=== PATIENT | female | born 1970 | race Caucasian/White ===

== ENCOUNTER → 2022-04-16 | Outpatient (CLI) | payer MEDICARE, MEDICAID ==
--- NOTE | 2022-04-16 11:33 | Diagnostic Imaging Report ---
INDICATION: Bladder carcinoma, initial staging. Patient does have a liver lesion noted on outside CT. Serum blood glucose level at time of injection is 154 mg/dL. Patient was administered 13 mCi F-18 FDG intravenously in the right antecubital location and PET imaging was performed from the top of skull to mid thighs. Noncontrast CT was also performed for attenuation correction and anatomic correlation. No prior imaging is available for comparison. There is symmetric activity throughout the brain. Soft tissues of the neck are unremarkable. No definite mediastinal or hilar hypermetabolism is seen. No pulmonary parenchymal hypermetabolism is identified. There is a low-attenuation lesion in the dome of the right lobe of the liver measuring 2.4 cm. However, this does not show FDG avidity. No definite hypermetabolic liver lesions are seen. There are however some hypermetabolic lymph nodes in the linh hepatis as well as in the gastrohepatic ligament. Linh hepatis lymph node demonstrates SUV max of 4.8. Gastrohepatic lymph node shows SUV max of 3.7. There is bilateral hydroureteronephrosis present. There is a lytic lesion in the left iliac bone measuring 13 mm. This is hypermetabolic with SUV max of 9.4. There is a hypermetabolic soft tissue mass right para midline pelvis just cephalad to the urinary bladder measuring 6.0 x 4.8 cm. This demonstrate SUV max of 12.6. There are some hypermetabolic lymph nodes in the right groin. Right groin lymph node demonstrates SUV max 8.6. There is a hypermetabolic soft tissue density in the deeper right groin musculature with an SUV max of 6.7. This appears to be situated between the right pectineus and obturator externus musculature. IMPRESSION: Abnormal PET/CT study demonstrating hypermetabolic linh hepatis and gastrohepatic ligament lymphadenopathy. The right lobe liver dome lesion does not appear to be FDG avid. There is also a hypermetabolic lytic lesion in the left iliac bone as well as hypermetabolic pelvic mass as well as associated right groin hypermetabolic lymphadenopathy. Dictated by: Dictated on workstation # [id number]
== END ==
LOC: RAD 06:50
PROVIDERS: ATTEND Internal Medicine Hospice and Palliative Medicine
DX: C67.9 Malignant neoplasm of bladder, unspecified (principal); K76.9 Liver disease, unspecified
CPT/HCPCS: 78815; A9552

== ENCOUNTER → 2022-06-08 | Outpatient (RCR) | payer MEDICARE, MEDICAID ==
[2022-06-08 13:12] LABS: BASOPHILS # (AUTO) 0.1 10^3/uL (0.0-0.1); BASOPHILS % (AUTO) 1 % (0-10); EOSINOPHILS # (AUTO) 0.2 10^3/uL (0.0-0.3); EOSINOPHILS % (AUTO) 3 % (0-10); HEMATOCRIT 30 % (35-52); HEMOGLOBIN 9.7 g/dL (11.5-16.0); LYMPHOCYTES # (AUTO) 1.7 10^3/uL (1.0-4.0); LYMPHOCYTES % (AUTO) 29 % (12-44); MEAN CORPUSCULAR HEMOGLOBIN 27 pg (25-34); MEAN CORPUSCULAR HGB CONC 32 g/dL (32-36); MEAN CORPUSCULAR VOLUME 84 fL (80-99); MEAN PLATELET VOLUME 8.2 fL (9.0-12.2); MONOCYTES # (AUTO) 0.4 10^3/uL (0.0-1.0); MONOCYTES % (AUTO) 6 % (0-12); NEUTROPHILS # (AUTO) 3.6 10^3/uL (1.8-7.8); NEUTROPHILS % (AUTO) 62 % (42-75); PLATELET COUNT 370 10^3/uL (130-400); WHITE BLOOD COUNT 5.9 10^3/uL (4.3-11.0)
[2022-06-08 13:33] LABS: ALBUMIN 3.9 GM/DL (3.2-4.5); BILIRUBIN,TOTAL 0.2 MG/DL (0.1-1.0); CALCIUM 9.5 MG/DL (8.5-10.1); CREATININE SERUM 1.07 MG/DL (0.60-1.30); POTASSIUM 3.4 MMOL/L (3.6-5.0); TOTAL PROTEIN 7.5 GM/DL (6.4-8.2)
== END ==
LOC: ONC 10:24
PROVIDERS: ATTEND Internal Medicine Hematology & Oncology
DX: C67.9 Malignant neoplasm of bladder, unspecified (principal); F32.9 Major depressive disorder, single episode, unspecified; M89.9 Disorder of bone, unspecified; R59.0 Localized enlarged lymph nodes; Z90.49 Acquired absence of other specified parts of digestive tract; Z92.3 Personal history of irradiation; Z85.41 Personal history of malignant neoplasm of cervix uteri
CPT/HCPCS: 80053; 82378; 85025; 86304; G0463; 36415; 99204

== ENCOUNTER → 2022-06-12 | Outpatient (CLI) | payer OTHER, MEDICAID ==
[~2022-06-12] MED LIST: CATHETER FLUSH 10 ML SYR IV PRN; IOHEXOL 350 MG/ML 100 ML (OMNIPAQUE 350) VIAL IV ONE; NS 100 ML (IVPB) BAG IV ONE
--- NOTE | 2022-06-12 13:01 | Diagnostic Imaging Report ---
Indication: Bladder cancer TECHNIQUE: Multiple contiguous axial images were obtained through the chest, abdomen, and pelvis after the administration of intravenous contrast. Auto Exposure Controls were utilized during the CT exam to meet ALARA standards for radiation dose reduction. Comparison made to PET/CT of 04/16/2022 CT chest findings: There are no enlarged mediastinal or hilar nodes. There are no enlarged axillary nodes or chest wall lesions. There is no pleural or pericardial fluid. There is no overt bony abnormality in the chest. Lung parenchymal windows demonstrate calcified granuloma in the right upper lobe. There is no suspicious pulmonary nodule or infiltrate. CT abdomen pelvis findings: There is a vague lesion in the right lobe the liver posteriorly and superiorly, measuring 2.3 cm. This lesion apparently was not hypermetabolic on recent PET study and is nonspecific. Patient's had previous cholecystectomy. The spleen, adrenals, and pancreas appear unremarkable. The left kidney shows minimal hydronephrosis. Right kidney shows moderate to severe hydronephrosis and decreased enhancement compared to the left side. There is hydroureter on the right side, down to the level of the distal ureter. There is mild left hydroureter. There are some mildly enlarged nodes in the gastrohepatic ligament periportal region, which were hypermetabolic on recent PET study. Largest node in the gastrohepatic ligament measured 2.4 x 1.9 cm, the largest node in the periportal region measured 2.1 x 1.0 cm. There is some edema in the subcutaneous tissues in the pelvis. There is a mildly enlarged right inguinal lymph node measuring 1.3 cm. There is a lytic lesion in the left iliac bone medially measuring approximately 1.9 cm in greatest diameter. IMPRESSION: CTA chest was unremarkable. CT abdomen and pelvis demonstrates adenopathy in the gastrohepatic ligament and periportal region as well as in the right inguinal region, these lesions were hypermetabolic on recent PET study and are therefore likely metastatic. There is a lesion in the right lobe the liver which measures 2.3 cm and does not appear to be hypermetabolic on the recent PET study. This lesion is nonspecific and could represent hemangioma or benign lesion. It has not changed compared to the PET study dated 04/16/22. Further follow-up is recommended. There is a lytic lesion left iliac bone which is likely metastatic. There is hydronephrosis, moderate to severe on the right-sided and minimal on the left side with hydroureter on both sides. Dictated by: Dictated on workstation # [id number]
== END ==
LOC: RAD 11:53
PROVIDERS: ATTEND Internal Medicine Hematology & Oncology
DX: N13.30 Unspecified hydronephrosis (principal); C67.9 Malignant neoplasm of bladder, unspecified; R91.1 Solitary pulmonary nodule; R59.0 Localized enlarged lymph nodes; M89.9 Disorder of bone, unspecified
CPT/HCPCS: 71260; 74177

== ENCOUNTER → 2022-07-09 | Outpatient (RCR) | payer MEDICARE, MEDICAID | END | disposition home or self-care (01) | LOC: ONC 06-27 12:28 | PROVIDERS: ATTEND Internal Medicine Hematology & Oncology | DX: C67.9 Malignant neoplasm of bladder, unspecified (principal); C79.51 Secondary malignant neoplasm of bone; N13.30 Unspecified hydronephrosis; D64.9 Anemia, unspecified | CPT/HCPCS: 99205; 99213 ==

== ENCOUNTER 2022-07-18 10:42 | Outpatient (RCR) | payer MEDICARE, MEDICAID | END 2022-08-08 | disposition home or self-care (01) | LOC: ONC 10:42 | PROVIDERS: ATTEND Internal Medicine Hematology & Oncology | DX: C67.9 Malignant neoplasm of bladder, unspecified (principal); C79.51 Secondary malignant neoplasm of bone; N13.30 Unspecified hydronephrosis; D64.9 Anemia, unspecified | CPT/HCPCS: 99213 ==